=== PATIENT | female | born 1985 | race Caucasian/White ===

== ENCOUNTER 2020-08-19 13:11 | Emergency (ER) | payer BC ==
[~2020-08-19] VITALS: Ht 165.1 cm; Wt 111.1 kg
== END 2020-08-19 15:23 | disposition home or self-care (01) ==
LOC: ER 14:17
DX: M25.512 Pain in left shoulder (principal); R07.89 Other chest pain; I10 Essential (primary) hypertension; F17.210 Nicotine dependence, cigarettes, uncomplicated
CPT/HCPCS: 71045; 93005; 99283